=== PATIENT | male | born 1950 | race Caucasian/White ===

== ENCOUNTER 2019-02-10 10:38 | Emergency (ER) | payer MEDICARE, BC ==
[~2019-02-10] VITALS: Ht 167.6 cm; Wt 83.0 kg
--- NOTE | 2019-02-10 10:49 | NUR ---
PT WALKED INTO EMERGENCY ROOM FOR C/C Laceration "cut tip of fingers on hedge clipper" PT ALERT WITH ORIENTATION X 3. WILL CONTINUE TO MONITOR
[2019-02-10] MEDS ORDERED: TDAP [DIPH/PERTUSSIS/TET] 0.5 ML VIAL IM ONE ×2 (11:00→11:11)
[2019-02-10] MEDS ORDERED: LIDOCAINE HCL/PF 1% 30 ML VIAL TP ONE (11:00)
[2019-02-10] MEDS ORDERED: LIDOCAINE HCL/MPF 1% 30 ML VIAL IJ ONE (11:13)
[2019-02-10] MEDS ORDERED: ACETAMINOPHEN ES 500 MG TABLET ONE (12:02)
[2019-02-10] MEDS ORDERED: ACETAMINOPHEN ES 500 MG TABLET PO ONE (12:30)
[2019-02-10 12:44] VITALS: BP 105/61
== END 2019-02-10 12:45 | disposition home or self-care (01) ==
LOC: ER 10:38
DX: S61.216A Laceration without foreign body of right little finger without damage to nail, initial encounter (principal); I10 Essential (primary) hypertension; Z95.1 Presence of aortocoronary bypass graft; W26.8XXA Contact with other sharp object(s), not elsewhere classified, initial encounter; Y93.89 Activity, other specified; Y92.89 Other specified places as the place of occurrence of the external cause; Y99.8 Other external cause status
CPT/HCPCS: 12001; 73140; 90471; 90715; 99283; J3490 ×2